=== PATIENT | male | born 1955 | race Caucasian/White ===

== ENCOUNTER → 2020-03-03 | Outpatient (CLI) | payer MEDICARE, OTHER ==
--- NOTE | 2020-03-04 13:09 | RADIOLOGY REPORT (SQ) ---
EXAM DESCRIPTION: MRA ABDOMEN WITHOUT IMAGES COMPLETED DATE/TIME: 03/03/2020 9:01 am REASON FOR STUDY: I70.1 ATHEROSCLEROSIS OF RENAL ARTERY I70.1 ATHEROSCLEROSIS OF RENAL ARTERY N18.3 1 CHRONIC KIDNEY DISEASE, STAGE 3A COMPARISON: None. TECHNIQUE: MRI of the renal arteries and adjacent aorta without contrast. FINDINGS: Study is limited by motion artifact. To vessels on either side appear to be bilateral aziza l renal arteries. Dominant artery on the right is patent. Non dominant more inferior vessel on the right and both attenuated vessels supplying the left kidney are patent. The origin of the left renal arteries not well visualized. Patent proximal SMA and celiac arteries. Aortic ectasia without evidence of aneurysm. No obvious farnsworth spicious mass in either kidney, spleen, or liver. No ascites. IMPRESSION: Technical limitations. No significant stenosis of the right renal arteries. The origin of the dual left renal arteries not well visualized. TECHNICAL DOCUMENTATION: JOB ID: [id number] [employer]- All Rights Reserved Reading location - IP/workstation name: [email or web address]
== END ==
LOC: RAD 08:02
PROVIDERS: ATTEND Internal Medicine Nephrology
DX: I70.1 Atherosclerosis of renal artery (principal); N18.31 Chronic kidney disease, stage 3a
CPT/HCPCS: C8901

== ENCOUNTER → 2020-04-14 | Outpatient (CLI) | payer MEDICARE, OTHER ==
--- NOTE | 2020-04-14 14:07 | RADIOLOGY REPORT (SQ) ---
EXAM DESCRIPTION: VENOUS UNILATERAL UPPER IMAGES COMPLETED DATE/TIME: 04/14/2020 1:57 pm REASON FOR STUDY: RUE SWELLING R22.31 LOCALIZED SWELLING, MASS AND LUMP, RIGHT UPPER LIMB COMPARISON: None. TECHNIQUE: Dynamic and static woodrfuf scale and color images acquired of the right arm venous system. S elected spectral images acquired with additional compression and augmentation maneuvers. The contrala teral subclavian vein and internal jugular vein were also imaged. Images stored on PACS. LIMITATIONS: None. FINDINGS: INTERNAL JUGULAR VEIN: Normal phasicity, compression, augmentation. No visualized echogeni c material on woodruff scale. No defects on color images. Comparison opposite side normal. SUBCLAVIAN VEIN: Normal compression, augmentation. No visualized echogenic material on woodruff scale. No defects on color images. AXILLARY VEIN: Normal compression, augmentation. No visualized echogenic material on woodruff scale. No d efects on color images. BRACHIAL VEIN: Normal compression, augmentation. No visualized echogenic material on woodruff scale. No d efects on color images. BASILIC VEIN: Normal compression, augmentation. No visualized echogenic material on woodruff scale. No de fects on color images. CEPHALIC VEIN: Normal compression, augmentation. No visualized echogenic material on woodruff scale. No d efects on color images. OTHER: 3.5 x 5.4 cm hypoechoic area in the antecubital fossa in the area of concern. CONTRALATERAL SUBCLAVIAN VEIN AND INTERNAL JUGULAR VEIN: Normal phasicity, compression and augmentation. No visualized echogenic material on woodruff scale. No de fects on color images. IMPRESSION: NO EVIDENCE DVT OR SVT IN THE RIGHT ARM. HYPOECHOIC AREA IN THE ANTECUBITAL FOSSA. COULD BE RELATED TO RECENT SOFT TISSUE INJURY. IF THERE I S CLINICAL CONCERN, MAY CONSIDER FOLLOW-UP MRI OF THE ELBOW. TECHNICAL DOCUMENTATION: JOB ID: [id number] 2010 [employer]- All Rights Reserved Reading location - IP/workstation name: [email or web address]
== END ==
LOC: SP 11:34
PROVIDERS: ATTEND Nurse Practitioner Adult Health
DX: R22.31 Localized swelling, mass and lump, right upper limb (principal)
CPT/HCPCS: 93971